=== PATIENT | female | born 1975 | race Caucasian/White ===

== ENCOUNTER 2021-08-26 09:16 | Day surgery (SDC) | payer OTHER, SELFPAY ==
[~2021-08-26] VITALS: Ht 160 cm; Wt 79.4 kg
== END 2021-08-26 11:55 | disposition home or self-care (01) ==
LOC: MDS 09:16 → MFCC 09:17 → MDS 11:55
PROVIDERS: ATTEND Obstetrics & Gynecology
DX: N92.0 Excessive and frequent menstruation with regular cycle (principal); Z20.822 Contact with and (suspected) exposure to COVID-19; Z53.8 Procedure and treatment not carried out for other reasons